=== PATIENT | male | born 1975 | race Caucasian/White ===

== ENCOUNTER 2024-08-25 05:43 | Emergency (ER) | payer OTHER, SELFPAY ==
[2024-08-25 05:44] VITALS: BP 131/98; PULSE 76; RESP 16; TEMP 35.8; O2SAT 100; BMI 29.7
--- NOTE | 2024-08-25 06:03 | EDS_ITS ---
HPI History of Present Illness Chief Complaint: Nausea/Vomiting Informant: patient and EMS Narrative Narrative: Patient is a 49-year-old male with past medical history of complete heart block status post pacemaker roughly 7 years ago. He states that he is sensitive to foods. He states in the past after eating certain foods that he can develop bouts of nausea and vomiting. He states that this evening he had a spicy chicken sandwich and sampled a few various whiskeys. He states he went to bed feeling overall normal however he woke roughly 2 hours prior to arrival and had multiple bouts of emesis. He states that he has a headache with this but that having a headache with his vomiting is typically normal for him. He reports he had a bowel movement at the same time but denies any diarrhea. He states his daughter back at home has been feeling somewhat sick but does not have similar symptoms and other than that denies any known sick contacts. He states that there has been no abdominal surgeries and he denies any history of diverticular disease. However he states that this morning his symptoms were worse than his previous when he had irritation secondary to food and therefore EMS was called to bring him to the hospital for evaluation. [facility] Medical History Pacemaker Home Medications ?Medication ?Instructions ?Recorded ?Last Taken ?Type ondansetron 4 mg disintegrating 4 mg PO TID PRN nausea and 08/25/24 Unknown Rx tablet vomiting #21 tabs Allergy/AdvReac Type Severity Reaction Status Date / Time Opioids - Morphine Analogues AdvReac Nausea Verified 08/25/24 06:10 (narcotics) walnut AdvReac NEEDS Verified 08/25/24 05:45 FOLLOW-UP Social History Smoking Status: Never smoker ROS ROS ED Constitutional Constitutional ED: Denies chills or fever(s) Eyes Eyes: Denies change in vision ENT ENT ED: Denies sore throat Cardiovascular Cardiovascular: Denies chest pain Respiratory/Chest Respiratory/Chest: Denies cough or dyspnea Gastrointestinal Gastrointestinal: Reports nausea and vomiting; Denies abdominal pain, constipation or diarrhea Genitourinary Genitourinary ED: Denies dysuria Musculoskeletal Musculoskeletal: Denies myalgias Integumentary Denies rash Neurologic Neurologic: Reports headache(s); Denies paresthesias or weakness Hematologic/Lymphatic Hematologic/Lymphatic: Denies easy bleeding or easy bruising EXAM Physical Exam Const Vital Signs: 08/25/24 05:44 Temperature 96.5 F L Temperature Source Axillary Pulse Rate 76 Respiratory Rate 16 Blood Pressure 131/98 H Blood Pressure Mean 109 Pulse Ox 100 Oxygen Delivery Method Room Air Positive well nourished and well developed General Appearance ED: well developed; Negative for pallor HEENT HEENT Narrative: Normocephalic atraumatic No tongue or lip swelling no oral lesions no airway edema or compromise No secondary findings in the posterior pharynx to suggest infection Eyes PERRL and EOMs intact bilaterally General Eye ED: Negative for scleral icterus Neck supple Neck Narrative: No nuchal rigidity or meningeal signs noted No subcutaneous emphysema present Resp normal respiratory effort and clear to auscultation bilaterally Cardio regular rate and regular rhythm Rate: other Other Details: Heart is regular rate and rhythm Radial and carotid pulses are equal and symmetric GI non-tender, non-distended and no masses GI Narrative: Abdomen is soft nontender and nondistended with hyperactive bowel sounds No voluntary guarding or rigidity or pulsatile mass Negative Mata sign No pain over McBurney's point Auscultation: hyperactive bowel sounds Palpation: soft Extremity normal to inspection Neuro oriented x3, CN's II-XII intact bilaterally and no sensory deficits noted Sensorium / Orientation: alert Motor Exam: strength 5/5 throughout Psych mental status grossly normal Skin no rashes or lesions noted General Skin Exam: Negative for jaundice or pallor MDM MDM MDM Narrative Medical decision making narrative: Patient arrived to the ER slightly hypertensive otherwise with stable vitals. He reported multiple bouts of nausea and vomiting. He also reported a headache associated with this and states that the symptoms seem to occur at the same time. He does admit to having difficulty with certain foods in the past and is unsure if this was a food insensitivity. Differential diagnosis is for viral stomach infection such as norovirus versus rotavirus versus pancreatitis versus biliary colic versus potential spontaneous subarachnoid or subdural hemorrhage. Secondary to this a head CT was obtained which revealed no acute findings. Blood work showed no leukocytosis or left shift going against an infectious process and his lipase is normal going against pancreatitis and liver enzymes are normal going against biliary colic. After receiving IV fluids Toradol and Zofran patient had resolution of his symptoms and vitals were normal. On repeat evaluation his abdomen remains soft and nonsurgical. Therefore this time as he has not had abdominal pain with initial or repeat examination he is afebrile there are no clinically significant lab abnormalities and his head CT confirms that this bout of headache and nausea was not from a spontaneous bleed or mass I do not feel there is need for further workup in the ER and is otherwise safe for discharge. History & Record Review Discussion w/independent historian: EMS personnel and Patient Lab Data Attestation: I reviewed the patient's lab results. Labs: Laboratory Results - last 24 hr 08/25/24 05:25 WBC 4.9 RBC 4.48 L Hgb 13.9 Hct 38.5 L MCV 85.9 MCH 31.0 MCHC 36.1 H RDW Std Deviation 38.2 RDW Coeff of Trina 12.2 Plt Count 207 MPV 9.9 Immature Gran % (Auto) 0.400 Neut % (Auto) 58.2 Lymph % (Auto) 31.4 Merrick % (Auto) 6.5 Eos % (Auto) 2.9 Baso % (Auto) 0.6 Absolute Neuts (auto) 2.9 Absolute Lymphs (auto) 1.54 Nucleated RBC % 0 Sodium 141 Potassium 3.9 Chloride 105 Carbon Dioxide 23.6 Anion Gap 13 BUN 13 Creatinine 1.08 Estim Creat Clear Calc 84.81 Est GFR (MDRD) Non-Af 83 BUN/Creatinine Ratio 12.1 Glucose 124 H Calcium 9.5 Total Bilirubin 0.71 Direct Bilirubin 0.24 AST 27 ALT 21 Alkaline Phosphatase 68 Total Protein 7.0 Albumin 4.5 Globulin 2.5 Lipase 45 Radiography Diagnostic Testing: Clinical Impression(s) from Imaging Studies Brain CT 08/25/24 06:14 IMPRESSION: No intracranial hemorrhage, mass effect or CT evidence of large vascular territory acute infarct. Mild appearing paranasal sinus disease as above. Reading Location: [facility] Discharge Plan Triage Chief Complaint: Nausea/Vomiting ED Provider: Warren Campos Dx/Rx/DC Orders Clinical Impression: Nausea & vomiting, History of complete heart block, Status post placement of cardiac pacemaker Instructions: ED Food Poisoning (Adult), ED Vomiting (Adult) Prescriptions: New ondansetron 4 mg tablet,disintegrating 4 mg PO TID PRN (Reason: nausea and vomiting) Qty: 21 0RF Primary Care Provider: Care Physician,No Primary Referrals: [facility] Doctor,Out of [Non-Staff] - Activity Restrictions/Additional Instructions: Please use the Zofran as needed to help control any further bouts of nausea and vomiting and keep yourself well-hydrated. Return to the ER should you have any further concerns Print Language: Haitian Disposition Disposition: Home, Self Care
[2024-08-25] MEDS: Ketorolac 30 MG/ML Syringe IV (06:07)
[2024-08-25] MEDS: 0.9% Normal Saline (1000mL) 1,000 ML 999 ML IV (06:07)
[2024-08-25 06:12] LABS: Absolute Lymphocyte Count 1.54 X10^3/uL (0.83-4.51); Absolute Neutrophil Count 2.9 X10^3/uL (2.0-7.7); Basophil# 0.03 X10^3/uL; Basophil% 0.6 % (0-1); Eosinophil# 0.14 X10^3/uL; Eosinophils% 2.9 % (0-5); Hematocrit 38.5 % (40-54); Hemoglobin 13.9 g/dL (13.0-16.5); Lymphocyte # 1.54 X10^3/ul (0.83-4.51); Lymphocyte % 31.4 % (19-41); Mean Corp Hgb Conc 36.1 g/dL (32-36); Mean Corpuscular Volume 85.9 fL (80-94); Mean Platelet Vol. 9.9 fl (6.2-12.0); Monocyte# 0.32 X10^3/uL; Monocyte% 6.5 % (0-10); NRBC Flagged by Analyzer 0 % (0-5); Neutrophil # 2.86 X10^3/uL (2.7-7.7); Neutrophil % 58.2 % (47-70); Platelet Count 207 K/mm3 (150-450); RBC Distribution Width CV 12.2 % (11.6-14.6); RBC Distribution Width SD 38.2 fl (35.1-43.9); Red Blood Count 4.48 M/mm3 (4.6-6.2); White Blood Count 4.9 K/mm3 (4.4-11.0)
--- NOTE | 2024-08-25 06:14 | CT_ITS ---
PROCEDURE: BRAIN/HEAD WITHOUT CONTRAST 08/25/2024 REASON FOR EXAM: HEADACHE TECHNIQUE: Head CT without intravenous contrast. Coronal and Sagittal reconstruction series were provided. One or more dose reduction techniques were used (e.g., Automated exposure control, adjustment of the mA and/or kV according to patient size, use of iterative reconstruction technique. RADIATION DOSE SUMMARY: CTDlvol: 44.99 mGy DLP: 812.98 mGycm COMPARISON: None available FINDINGS: No intracranial hemorrhage, mass effect or CT evidence of large vascular territory acute infarct. The ventricles are within limits and midline. Mild convexity volume loss. Mild mucoperiosteal thickening noted partially imaged bilateral maxillary sinuses, left sphenoid sinus, right anterior ethmoid air cells and inferior right frontal sinus. No air-fluid level seen. The mastoids and orbits appear within limits. Possible left external auditory canal cerumen plug. CT/Brain/Head without Contrast IMPRESSION: No intracranial hemorrhage, mass effect or CT evidence of large vascular territ ory acute infarct. Mild appearing paranasal sinus disease as above. Reading Location: [id number]
[2024-08-25 06:29] LABS: Lipase 45 U/L (13-75)
[2024-08-25 06:49] LABS: AST(SGOT) 27 U/L (<=37); Alanine Aminotransfer ALT/SGPT 21 U/L (<=46); Albumin, Serum 4.5 g/dL (3.5-5.0); Alkaline Phosphatase 68 U/L (40-129); Anion Gap 13 (5-15); BUN 13 mg/dL (4-19); BUN/Creat Ratio 12.1 RATIO (10-20); Bilirubin, Direct 0.24 mg/dL (0.00-0.30); Calcium,Total 9.5 mg/dL (7.6-11.0); Carbon Dioxide 23.6 mmol/L (21.0-32.0); Chloride 105 mmol/L (98-108); Creatinine, Serum 1.08 mg/dL (0.70-1.20); EST Glomerular Filtration Rate 83 (>60); Estimated Creatinine Clearance 84.81 ml/min (50-250); Globulin 2.5 g/dL (2.2-4.2); Glucose 124 mg/dL (70-99); Potassium 3.9 mmol/L (3.3-5.1); Sodium Level 141 mmol/L (133-145); Total Bilirubin 0.71 mg/dL (0.00-1.30)
[2024-08-25 07:32] VITALS: BP 119/82; PULSE 83; RESP 14; TEMP 36.9; O2SAT 99
== END 2024-08-25 08:08 | disposition home or self-care (01) ==
PROVIDERS: Emergency Provider Emergency Medicine; Visit Provider Emergency Medicine
DX: R11.2 Nausea with vomiting, unspecified (principal); Z95.0 Presence of cardiac pacemaker; Z86.79 Personal history of other diseases of the circulatory system
CPT/HCPCS: 70450; 80048; 80076; 83690; 85025; 96361; 96374; 99285